=== PATIENT | female | born 1965 | race Caucasian/White ===

== ENCOUNTER 2017-11-15 15:31 | Outpatient (CLI) | payer OTHER ==
--- NOTE | 2017-11-18 15:02 | Mammography Report ---
Procedure Date: 11/15/2017 Accession Number: [id number] / [id number] Procedure: TEO - Screening Mammo Dig Bilat CPT Code: FULL RESULT: EXAM: Screening Mammo Dig Bilat DATE: 11/15/2017 4:06 PM CLINICAL HISTORY: 52 year-old nulliparous female with a history of early menses presents for screening. TECHNIQUE: Bilateral CC and MLO views were obtained. COMPARISON: 11/17/2014, 07/23/2012. FINDINGS: The breasts demonstrate scattered fibroglandular densities bilaterally. Coarse calcifications are identified in the right breast, typically benign. Similarly, typically benign coarse calcifications are seen in the left breast. No suspicious masses, clustered microcalcifications, or regions of architectural distortion are identified. IMPRESSION: Benign findings RECOMMENDATION: Routine annual screening unless otherwise clinically indicated. BIRADS CATEGORY 2: Benign findings STANDARD QUALIFYING STATEMENTS: 1. This examination was reviewed with the aid of Computer-Aided Detection (CAD). 2. A negative or benign imaging report should not delay biopsy if clinically suspicious findings are present. Consider surgical consultation if warrented. More than 5% of cancers are not identified by imaging. 3. Dense breasts may obscure an underlying neoplasm.
== END 2017-11-15 15:32 | disposition home or self-care (01) ==
LOC: DI 15:31
PROVIDERS: ATTEND Physician Assistant Medical
DX: Z12.31 Encounter for screening mammogram for malignant neoplasm of breast (principal)
CPT/HCPCS: 77067

== ENCOUNTER 2020-08-01 12:30 | Outpatient (CLI) | payer BC, OTHER ==
--- NOTE | 2020-08-02 08:12 | Mammography Report ---
BILATERAL DIGITAL SCREENING MAMMOGRAM 3D/2D: 08/01/2020 CLINICAL: Routine screening. Comparison is made to exams dated: 11/15/2017 mammogram, 11/17/2014 mammogram, and 07/23/2012 mammogram - [facility]. There are scattered fibroglandular elements in both breasts. No significant masses, calcifications, or other findings are seen in either breast. There has been no significant interval change. IMPRESSION: NEGATIVE There is no mammographic evidence of malignancy. A 1 year screening mammogram is recommended. This exam was interpreted at Station ID: [id number]. NOTE: For mammograms, a report in lay terms will be sent to the patient. Approximately 15% of breast malignancies will not be visualized mammographically. In the management of a palpable breast mass, a negative mammogram must not discourage biopsy of a clinically suspicious lesion. Electronically Signed By: Sean Ojeda M.D. aty/penrad:08/01/2020 16:02:16 ACR BI-RADS Category 1: Negative 3341F PARENCHYMAL PATTERN: (A) - The breast(s) demonstrate(s) scattered fibroglandular densities. BI-RADS CATEGORY: (1) - 1 RECOMMENDATION: (ANNUAL) - Recommend routine annual screening mammography. [id number] 1 year screening LATERALITY: (B)
== END 2020-08-01 12:31 | disposition home or self-care (01) ==
LOC: DI 12:30
DX: Z12.31 Encounter for screening mammogram for malignant neoplasm of breast (principal)

== ENCOUNTER 2020-08-23 06:45 | Outpatient (CLI) | payer BC, OTHER ==
[2020-08-23 07:25] LABS: ALBUMIN/GLOBULIN RATIO 0.9 (1.0-2.2); ALKALINE PHOSPHATASE 55 IU/L (42-121); ALT ALANINE AMINOTRANSFERASE 20 IU/L (10-60); AST ASPARTATE AMINOTRANSFERASE 20 IU/L (10-42); BILIRUBIN,TOTAL 0.8 mg/dL (0.2-1.0); BUN - BLOOD UREA NITROGEN 29 mg/dL (6-20); CALCIUM 9.1 mg/dL (8.5-10.3); CARBON DIOXIDE - CO2 26 mmol/L (21-32); CHLORIDE 102 mmol/L (101-111); CHOL/HDL RATIO 3.6 (<4.4); CHOLESTEROL 171 mg/dL; CREATININE 0.8 mg/dL (0.4-1.0); GFR - MDRD 74 (>89); GLUCOSE 105 mg/dL (70-100); HDL CHOLESTEROL 47 mg/dL; LDL CHOLESTEROL,CALCULATED 106 mg/dL; LDL/HDL RATIO 2.3 (<4.4); POTASSIUM 3.5 mmol/L (3.5-5.0); SODIUM 139 mmol/L (135-145); TOTAL PROTEIN 8.3 g/dL (6.7-8.2); TRIGLYCERIDES 88 mg/dL; VLDL CHOLESTEROL 18 mg/dL
[2020-08-23 07:28] LABS: BASOPHILS # (AUTO) 0.1 10^3/uL (0.0-0.1); EOSINOPHILS # (AUTO) 0.1 10^3/uL (0.0-0.7); EOSINOPHILS % (AUTO) 2.1 %; HCT - HEMATOCRIT 45.4 % (37.0-47.0); HGB - HEMOGLOBIN 14.6 g/dL (12.0-16.0); LYMPHOCYTES # (AUTO) 1.3 10^3/uL (1.5-3.5); LYMPHOCYTES % (AUTO) 21.3 %; MEAN CORPUSCULAR HEMOGLOBIN 28.5 pg (27.0-31.0); MEAN CORPUSCULAR HGB CONC 32.2 g/dL (32.0-36.0); MEAN CORPUSCULAR VOLUME 88.7 fL (81.0-99.0); MEAN PLATELET VOLUME 10.2 fL (7.9-10.8); MONOCYTES # (AUTO) 0.6 10^3/uL (0.0-1.0); NEUTROPHILS # (AUTO) 4.2 10^3/uL (1.5-6.6); NEUTROPHILS % (AUTO) 66.1 %; PLT - PLATELET COUNT 320 10^3/uL (130-450); RED BLOOD COUNT 5.12 10^6/uL (4.20-5.40); RED CELL DISTRIBUTION WIDTH 13.9 % (12.0-15.0); WHITE BLOOD COUNT 6.3 x10^3/uL (4.8-10.8)
[2020-08-23 07:36] LABS: THYROID STIMULATING HORMONE 4.57 uIU/mL (0.34-5.60)
== END 2020-08-23 06:46 | disposition home or self-care (01) ==
LOC: LAB 06:45
PROVIDERS: ATTEND Family Medicine
DX: Z00.00 Encounter for general adult medical examination without abnormal findings (principal)
CPT/HCPCS: 36415; 80053; 80061; 83721; 84443; 85025

== ENCOUNTER 2020-08-31 08:00 | Outpatient (CLI) | payer BC, OTHER ==
[2020-08-31 12:48] LABS: ESTIMATED AVERAGE GLUCOSE 120 mg/dL (70-100); HEMOGLOBIN A1c% 5.8 % (4.27-6.07)
== END 2020-08-31 23:59 | disposition home or self-care (01) ==
LOC: LAB.WCP 08:00
PROVIDERS: ATTEND Nurse Practitioner Family
DX: R73.01 Impaired fasting glucose (principal)
CPT/HCPCS: 36415; 83036

== ENCOUNTER 2022-06-16 14:03 | Outpatient (CLI) | payer BC, OTHER ==
[2022-06-16 14:41] LABS: BASOPHILS % (AUTO) 0.5 %; EOSINOPHILS # (AUTO) 0.1 10^3/uL (0.0-0.7); EOSINOPHILS % (AUTO) 1.1 %; HGB - HEMOGLOBIN 14.7 g/dL (12.0-16.0); LYMPHOCYTES # (AUTO) 1.5 10^3/uL (1.5-3.5); LYMPHOCYTES % (AUTO) 22.8 %; MEAN CORPUSCULAR HEMOGLOBIN 27.7 pg (27.0-31.0); MEAN CORPUSCULAR HGB CONC 31.3 g/dL (32.0-36.0); MEAN CORPUSCULAR VOLUME 88.5 fL (81.0-99.0); MEAN PLATELET VOLUME 10.4 fL (7.9-10.8); MONOCYTES # (AUTO) 0.4 10^3/uL (0.0-1.0); MONOCYTES % (AUTO) 6.2 %; NEUTROPHILS # (AUTO) 4.4 10^3/uL (1.5-6.6); NEUTROPHILS % (AUTO) 68.9 %; PLT - PLATELET COUNT 308 10^3/uL (130-450); RED BLOOD COUNT 5.31 10^6/uL (4.20-5.40); RED CELL DISTRIBUTION WIDTH 13.5 % (12.0-15.0); WHITE BLOOD COUNT 6.4 x10^3/uL (4.8-10.8)
[2022-06-16 15:13] LABS: THYROID STIMULATING HORMONE 2.05 uIU/mL (0.34-5.60)
[2022-06-16 15:15] LABS: FREE T4 (FREE THYROXINE) 0.78 ng/dL (0.58-1.64)
[2022-06-16 15:18] LABS: FERRITIN 41.9 ng/mL (11.0-306.8)
[2022-06-16 15:33] LABS: % IRON SATURATION 24 % (20-50); IRON 94 ug/dL (28-170); TOTAL IRON BINDING CAPACITY 388 ug/dL (250-450); TRANSFERRIN 277 mg/dL (192-382)
== END 2022-06-16 14:04 | disposition home or self-care (01) ==
LOC: LAB 14:03
PROVIDERS: ATTEND Nurse Practitioner
DX: L65.9 Nonscarring hair loss, unspecified (principal)
CPT/HCPCS: 36415; 82728; 83540; 84439; 84443; 84466; 84630; 85025

== ENCOUNTER 2022-09-11 07:24 | Outpatient (CLI) | payer BC, OTHER ==
[2022-09-11 07:41] LABS: BASOPHILS % (AUTO) 0.6 %; EOSINOPHILS # (AUTO) 0.1 10^3/uL (0.0-0.7); EOSINOPHILS % (AUTO) 1.7 %; HGB - HEMOGLOBIN 13.7 g/dL (12.0-16.0); LYMPHOCYTES # (AUTO) 1.2 10^3/uL (1.5-3.5); LYMPHOCYTES % (AUTO) 17.9 %; MEAN CORPUSCULAR HEMOGLOBIN 27.8 pg (27.0-31.0); MEAN CORPUSCULAR HGB CONC 31.9 g/dL (32.0-36.0); MEAN CORPUSCULAR VOLUME 87.2 fL (81.0-99.0); MEAN PLATELET VOLUME 9.9 fL (7.9-10.8); MONOCYTES # (AUTO) 0.5 10^3/uL (0.0-1.0); MONOCYTES % (AUTO) 7.8 %; NEUTROPHILS # (AUTO) 4.6 10^3/uL (1.5-6.6); NEUTROPHILS % (AUTO) 71.7 %; PLT - PLATELET COUNT 291 10^3/uL (130-450); RED BLOOD COUNT 4.93 10^6/uL (4.20-5.40); RED CELL DISTRIBUTION WIDTH 13.4 % (12.0-15.0); WHITE BLOOD COUNT 6.4 x10^3/uL (4.8-10.8)
[2022-09-11 08:02] LABS: ALBUMIN 3.5 g/dL (3.2-5.5); ALBUMIN/GLOBULIN RATIO 0.8 (1.0-2.2); ALKALINE PHOSPHATASE 69 IU/L (42-121); ALT ALANINE AMINOTRANSFERASE 14 IU/L (10-60); AST ASPARTATE AMINOTRANSFERASE 19 IU/L (10-42); BILIRUBIN,TOTAL 0.5 mg/dL (0.2-1.0); BUN - BLOOD UREA NITROGEN 28 mg/dL (6-20); CALCIUM 9.1 mg/dL (8.5-10.3); CARBON DIOXIDE - CO2 28 mmol/L (21-32); CHLORIDE 102 mmol/L (101-111); CHOL/HDL RATIO 4.1 (<4.4); CHOLESTEROL 181 mg/dL; CREATININE 0.8 mg/dL (0.4-1.0); GFR - MDRD 74 (>89); GLUCOSE 111 mg/dL (70-100); HDL CHOLESTEROL 44 mg/dL; LDL CHOLESTEROL,CALCULATED 122 mg/dL; LDL/HDL RATIO 2.8 (<4.4); POTASSIUM 3.5 mmol/L (3.5-5.0); SODIUM 141 mmol/L (135-145); TOTAL PROTEIN 7.9 g/dL (6.7-8.2); TRIGLYCERIDES 74 mg/dL; VLDL CHOLESTEROL 15 mg/dL
[2022-09-11 08:15] LABS: THYROID STIMULATING HORMONE 4.65 uIU/mL (0.34-5.60)
== END 2022-09-11 07:25 | disposition home or self-care (01) ==
LOC: LAB 07:24
PROVIDERS: ATTEND Physician Assistant
DX: E78.5 Hyperlipidemia, unspecified (principal); R60.0 Localized edema
CPT/HCPCS: 36415; 80053; 80061; 83721; 84443; 85025

== ENCOUNTER 2022-09-13 07:57 | Outpatient (CLI) | payer BC, OTHER | END 2022-09-13 07:58 | disposition home or self-care (01) | LOC: DI 07:57 | PROVIDERS: ATTEND Physician Assistant | DX: R01.1 Cardiac murmur, unspecified (principal); R60.0 Localized edema | CPT/HCPCS: 93306 ==

== ENCOUNTER 2023-07-15 13:54 | Outpatient (CLI) | payer BC, OTHER ==
--- NOTE | 2023-07-15 18:09 | Ultrasound Report ---
PROCEDURE: Duplex Ext Veins Bilateral INDICATIONS: KERI Diamond TECHNIQUE: Real-time imaging, as well as color and pulse Doppler interrogation, were performed of the deep veins of both legs from the inguinal ligament to the popliteal fossa. Attempted visualization of the calf veins was performed. COMPARISON: None FINDINGS: The deep veins are normally compressible, and free of intraluminal thrombus. Color and pu lse Doppler demonstrate normal phasic intravascular flow. There is normal augmentation response to d istal compression maneuver. IMPRESSION: Negative bilateral duplex venous ultrasound for DVT. Reviewed by: Geovanni Garrido MD on 07/15/2023 6:07 PM PDT Approved by: Geovanni Garrido MD on 07/15/2023 6:07 PM PDT Station ID: [id number]
--- NOTE | 2023-07-15 18:09 | Ultrasound Report ---
PROCEDURE: Ankle Brachial Index INDICATIONS: PVD, BILATERAL LEG EDEMA TECHNIQUE: Ankle-brachial indices were obtained bilaterally and recorded. COMPARISONS: None. FINDINGS: Right ankle brachial index (SCARLET): 1.0 Left ankle brachial index (SCARLET): 1.0 Healing potential: Ankle pressures >55 mm Hg in non-diabetics and >80 mm Hg in diabetics are likely to achieve primary h ealing of ischemic foot ulcers. Toe pressures >30 mm Hg are likely to achieve primary healing of ischemic foot ulcers, toe or transme tatarsal amputations. IMPRESSION: Normal bilateral ankle-brachial indices. Reviewed by: Geovanni Garrido MD on 07/15/2023 6:08 PM PDT Approved by: Geovanni Garrido MD on 07/15/2023 6:08 PM PDT Station ID: [id number]
--- NOTE | 2023-07-15 18:12 | Ultrasound Report ---
PROCEDURE: Arterial Duplex Lwr Ext BL INDICATIONS: PVD, BILATERAL LEG EDEMA TECHNIQUE: Color and pulse Doppler interrogation was performed of both lower extremity arterial systems, with im age documentation. COMPARISON: None FINDINGS: Right lower extremity: Common femoral artery: 184 cm/sec, with triphasic flow. Deep femoral artery: 74 cm/sec, with biphasic flow. Proximal superficial femoral artery: 115 cm/sec, with triphasic flow. Mid superficial femoral artery: 119 cm/sec, with triphasic flow. Distal superficial femoral artery: 117 cm/sec, with triphasic flow. Popliteal artery: 57 cm/sec, with triphasic flow. Posterior tibial artery: 19 cm/sec, with monophasic high resistance flow distally suggesting distal stenotic or occlusive disease. More proximally it has a normal waveform. Anterior tibial artery/dorsalis pedis: 68/99 cm/sec, with triphasic/biphasic flow. Azevedo-scale imaging description: Widely patent vessels from the common femoral through the popliteal Left lower extremity: Common femoral artery: 83 cm/sec, with triphasic flow. Deep femoral artery: 72 cm/sec, with biphasic flow. Proximal superficial femoral artery: 123 cm/sec, with triphasic flow. Mid superficial femoral artery: 117 cm/sec, with triphasic flow. Distal superficial femoral artery: 74 cm/sec, with triphasic flow. Popliteal artery: 58 cm/sec, with triphasic flow. Posterior tibial artery: 90 cm/sec, with triphasic flow. Anterior tibial artery/dorsalis pedis: 68/78 cm/sec, with triphasic/biphasic flow. Azevedo-scale imaging description: Widely patent vessels with normal waveforms. IMPRESSION: 1. No evidence of inflow stenosis. 2. Right lower extremity duplex findings demonstrate wide patency from the common femoral through the popliteal. There is distal tibial artery stenotic disease or occlusion. 3. Unremarkable left lower extremity duplex arterial ultrasound. Reviewed by: Geovanni Garrido MD on 07/15/2023 6:11 PM PDT Approved by: Geovanni Garrido MD on 07/15/2023 6:11 PM PDT Station ID: [id number]
== END 2023-07-15 13:55 | disposition home or self-care (01) ==
LOC: DI 13:54
PROVIDERS: ATTEND Nurse Practitioner Family
DX: R60.0 Localized edema (principal); I70.201 Unspecified atherosclerosis of native arteries of extremities, right leg
CPT/HCPCS: 93922; 93925; 93970